=== PATIENT | female | born 1950 | race Caucasian/White ===

== ENCOUNTER 2017-04-24 17:46 | Emergency (ER) | payer BC ==
[2017-04-24 19:51] VITALS: BP 148/76
--- NOTE | 2017-05-17 16:09 | UC ---
Ab Stone Nikita, scribed for Sindi Sanchez DO on 04/24/17 at 1843 . General HPI - HPI Summary HPI Summary: This patient is a 67 year old F presenting to [facility] with a chief complaint of vomiting since 0200 this morning. The patient rates the pain 4/10 in severity. Symptoms aggravated by PO. Symptoms alleviated by nothing. Patient reports abdominal pain before vomiting, TIMMONS, dizziness, nausea, dehydration, and feeling feverish. Patient denies SOB, CP, pain in neck, jaw, or arm, diarrhea, dysuria, urinary changes in frequency, color, or odor, muscle aches, joint pain, and urticaria. Pt reports she can only eat crushed ice. Pt is a diabetic; BS was 475 at 1730. In [facility], her BS was 390. - History of Current Complaint Chief Complaint: UCGI Stated Complaint: VOMITING Time Seen by Provider: 04/24/17 18:39 Hx Obtained From: Patient Onset/Duration: Sudden Onset, Lasting Hours - 0200, Still Present Timing: Constant Onset Severity: Moderate Current Severity: Moderate Pain Intensity: 4 Pain Location at: abdominal pain prior to vomiting Aggravating: PO Alleviating: Nothing Associated Signs & Symptoms: Positive: Other - Patient reports abdominal pain before vomiting, TIMMONS, dizziness, nausea, dehydration, and feeling feverish. Patient denies SOB, CP, pain in neck, jaw, or arm, diarrhea, dysuria, urinary changes in frequency, color, or odor, muscle aches, joint pain, and urticaria. - Allergy/Home Medications Allergies/Adverse Reactions: Allergies Allergy/AdvReac Type Severity Reaction Status Date / Time No Known Allergies Allergy Verified 04/24/17 18:33 Home Medications: Home Medications Zoledronic/Mannitol 5 MG/100ML [Reclast 5 MG/100ML] 1 tab PO DAILY 04/24/17 [ History Confirmed 04/27/17] PMH/Surg Hx/FS Hx/Imm Hx Endocrine History: Diabetes Other Cardiovascular History: No CAD Cancer History: Breast Cancer - Surgical History Surgical History: Yes Surgery Procedure, Year, and Place: Removed fallopian tubes due to infection age 26, [facility]. Left breast lumpectomy. Depression - Family History Known Family History: Positive: Hypertension, Diabetes Family History: [place] - Social History Alcohol Use: Occasionally Alcohol Amount: 3-4 PER DAY Substance Use Type: None Smoking Status (MU): Former Smoker Type: Cigarettes Amount Used/How Often: 1/2 PACK A DAY Have You Smoked in the Last Year: No When Did the Patient Quit Smoking/Using Tobacco: 2007 - Immunization History Most Recent Influenza Vaccination: 04/2015 Most Recent Tetanus Shot: UNKNOWN Most Recent Pneumonia Vaccination: "APPROX 7 YRS AGO" Review of Systems Constitutional: Fever - feeling feverish Skin: Other - denies urticaria ENT: Other - dehydration Respiratory: Other - Denies SOB Cardiovascular: Other - Denies CP Gastrointestinal: Abdominal Pain - before vomiting, Nausea, Other - Denies diarrhea Genitourinary: Other - denies dysuria, urinary changes in frequency, color, or odor Musculoskeletal: Other: - denies pain in neck, jaw, or arm, muscle aches, joint pain Neurological: Headache, Other - Dizziness All Other Systems Reviewed And Are Negative: Yes Physical Exam Triage Information Reviewed: Yes Appearance: No Pain Distress, Well-Nourished, Ill-Appearing - Moderately Vital Signs: Initial Vital Signs Temp 100.5 F 04/24/17 18:26 Pulse 117 04/24/17 18:26 Resp 18 04/24/17 18:26 BP 120/59 04/24/17 18:26 Pulse Ox 98 04/24/17 18:26 Vital Signs Reviewed: Yes Eyes: Positive: Conjunctiva Clear. Negative: Discharge ENT: Positive: Hearing grossly normal, Other: - Normal voice. Negative: Muffled /hoarse voice Neck exam: Normal Neck: Positive: Supple Respiratory: Positive: Lungs clear, Normal breath sounds, No respiratory distress, No accessory muscle use, Other: - no crackles Cardiovascular: Positive: Tachycardia, Other: - possible JVD, holosystolic murmur Abdomen Description: Positive: Nontender, Soft. Negative: Distended, Guarding Bowel Sounds: Positive: Present, Hyperactive Musculoskeletal Exam: Normal Neurological: Positive: Alert, Muscle Tone Normal Psychological Exam: Normal Psychological: Positive: Age Appropriate Behavior Skin Exam: Normal, Other - Warm, Dry, Normal color Diagnostics - EKG Cardiac Rate: Tachycardia - taken at 1932; 117 bpm; Q waves in V1-V3 Cardiac Rhythm: Sinus: Normal Course/Dx - Course Course Of Treatment: This patient is a 67 year old F presenting to [facility] with a chief complaint of vomiting since 0200 this morning. The patient rates the pain 4/10 in severity. Symptoms aggravated by PO. Symptoms alleviated by nothing. Patient reports abdominal pain before vomiting, TIMMONS, dizziness, nausea, dehydration, and feeling feverish. Patient denies SOB, CP, pain in neck, jaw, or arm, diarrhea, dysuria, urinary changes in frequency, color, or odor, muscle aches, joint pain, and urticaria. Pt reports she can only eat crushed ice. Pt is a diabetic; BS was 475 at 1730. In [facility], her BS was 390. EKG reveals sinus tachycardia and Q waves at V1-V3. Medications reviewed this visit. Pt will be transferred to [facility] by ambulance. Pt is agreeable with this plan. - Differential Dx - Multi-Symptom Provider Diagnoses: acute n/v, dehydration, atypical cp Discharge - Discharge Plan Condition: Stable Disposition: TRANS HIGHER LVL OF CARE FAC Referrals: Fran Meléndez MD [Primary Care Provider] - The documentation as recorded by the Ab martin Nikita accurately reflects the service I personally performed and the decisions made by , Sindi Sanchez DO.
== END 2017-04-24 19:53 | disposition short-term general hospital (02) ==
LOC: UCEAST 17:46
DX: R11.2 Nausea with vomiting, unspecified (principal); E86.0 Dehydration; R07.89 Other chest pain; E11.9 Type 2 diabetes mellitus without complications; Z85.3 Personal history of malignant neoplasm of breast; F32.9 Major depressive disorder, single episode, unspecified; Z87.891 Personal history of nicotine dependence
CPT/HCPCS: 81003; 93005; 99213; G0463

== ENCOUNTER 2017-04-24 20:04 | Inpatient (IN) | payer BC ==
[2017-04-24] MEDS ORDERED: Ondansetron INJ* 2 MG/ML VIAL IV ONE (21:06)
[2017-04-24] MEDS: NS 0.9% 1000 ML* 2,000 ML IV ONE ×2 (21:18→21:56)
[2017-04-24 21:29] LABS: Hematocrit 42 % (35-47); Hemoglobin 14.1 g/dl (12.0-16.0); Mean Corpuscular HGB Conc 34 g/dl (31-36); Mean Corpuscular Hemoglobin 33 pg (27-31); Mean Corpuscular Volume 99 fL (80-97); Mean Platelet Volume 9 um3 (7.4-10.4); Red Blood Count 4.26 10^6/ul (4.0-5.4); Red Cell Distribution Width 12 % (10.5-15); White Blood Count 11.2 10^3/ul (3.5-10.8)
--- NOTE | 2017-04-24 21:39 | RAD ---
INDICATION: Tachycardia. COMPARISON: Comparison is made with a prior study from April 09, 2016. TECHNIQUE: A portable view of the chest was obtained. FINDINGS: Cardiac and mediastinal contours appear to be within normal limits. There is a 1.2 cm nodular density which projects above the right lung base possibly representing a nipple shadow. Recommend repeat chest film with nipple markers. There are curvilinear densities which project above the left lung base. This was in the region of a prior pneumonia and may represent areas of scarring. The lungs are otherwise clear. No pleural effusion is seen. IMPRESSION: 1. NO EVIDENCE FOR ACUTE FINDING. 2. THERE IS A NODULAR DENSITY WHICH PROJECTS ABOVE THE RIGHT LUNG BASE. RECOMMEND REPEAT CHEST X-RAY WITH NIPPLE MARKERS.
[2017-04-24 21:44] LABS: ALT 22 U/L (7-52); AST 24 U/L (13-39); Albumin 4.4 g/dL (3.2-5.2); Alkaline Phosphatase 72 U/L (34-104); BUN/Creatinine Ratio 19.6 (8-20); Blood Urea Nitrogen 20 mg/dL (6-24); C Reactive Protein < 1.00 mg/L (< 5.00); Calcium 9.5 mg/dL (8.6-10.3); Chloride 95 mmol/L (101-111); EGFR African American 69.7 (>60); EGFR Non-African American 54.2 (>60); Globulin 2.9 g/dL (2-4); Glucose 308 mg/dL (70-100); Lipase 12 U/L (11.0-82.0); Potassium 4.1 mmol/L (3.5-5.0); Sodium 134 mmol/L (133-145); Total Protein 7.3 g/dL (6.4-8.9)
[2017-04-24 21:48] LABS: Anion Gap 26 mmol/L (2-11); CO2 Carbon Dioxide 13 mmol/L (22-32)
[2017-04-24 22:08] LABS: Urine Bilirubin Negative (Negative); Urine Glucose 3+(>=500 mg/dL) (Negative); Urine Nitrite Negative (Negative)
[2017-04-24 22:14] LABS: Venous Bicarbonate HCO3 12.1 mmol/L (24-28)
[2017-04-24] MEDS ORDERED: Acetaminophen TAB* 325 MG PO PRN (22:16)
[2017-04-24] MEDS ORDERED: Albuterol 2.5 MG/3 ML NEB.SOL* (0.083%) INH PRN (22:17)
[2017-04-24] MEDS ORDERED: Ondansetron INJ* 2 MG/ML VIAL IV PRN (22:17)
[2017-04-24] MEDS ORDERED: CMCS:Melatonin (NF) 3 MG TAB PO PRN (22:17)
[2017-04-24] MEDS ORDERED: D5W 1/2 NS 1000 ML BAG* 1,000 ML IV SCH (23:00)
[2017-04-25 00:58] LABS: Venous Bicarbonate HCO3 7.1 mmol/L (24-28)
[2017-04-25] MEDS ORDERED: NS 0.9% 1000 ML* 1,000 ML IV SCH (01:15)
[2017-04-25 01:18] LABS: BUN/Creatinine Ratio 19.3 (8-20); Calcium 8.3 mg/dL (8.6-10.3); EGFR African American 58.4 (>60); EGFR Non-African American 45.4 (>60); Potassium 4.7 mmol/L (3.5-5.0)
[2017-04-25] MEDS ORDERED: D5NS 0.9% 1000 ML BAG* 1,000 ML IV SCH (03:00)
--- NOTE | 2017-04-25 04:23 | ED ---
Hugo Stone Thomas, scribed for John Silva MD on 04/24/17 at 2110 . HPI Diabetic - HPI Summary HPI Summary: The pt is a 67 y/o F with a Hx of Type 1 DM referred from [facility] with complains of vomiting that began this AM at 03:00. She has been vomiting all day and the only time she does not vomit is when she does not eat. The pain is aggravated by PO intake. The pain is alleviated by nothing. 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 Her blood glucose has been in the 300s today. She has a Hx of DKA and she says her current symptoms feel like her last bout of DKA. Pt additionally c/o nausea. Pt denies confusion, abdominal pain. She is hard of hearing. - History Of Current Complaint Chief Complaint: EDDiabeticProb Time Seen by Provider: 04/24/17 20:57 Hx Obtained From: Patient Onset/Duration: Lasting Hours - vomiting onset today at 03:00, Still Present Timing: Constant Aggravating: Other - vomiting aggravated by PO intake Alleviating: Nothing Associated Signs & Symptoms: Nausea, Vomiting Related History: DM I, Hx of DKA - Allergies/Home Medications Allergies/Adverse Reactions: Allergies Allergy/AdvReac Type Severity Reaction Status Date / Time No Known Allergies Allergy Verified 04/24/17 18:33 PMH/Surg Hx/FS Hx/Imm Hx Previously Healthy: No Endocrine/Hematology History: Reports: Hx Diabetes - 7 yrs, Other Endocrine/ Hematological Disorders - Hx DKA Denies: Hx Thyroid Disease, Hx Anemia Cardiovascular History: Reports: Hx Hypertension Denies: Hx Congestive Heart Failure, Other Cardiovascular Problems/Disorders Respiratory History: Reports: Hx Chronic Bronchitis, Other Respiratory Problems/ Disorders - PNEUMONIA Denies: Hx Asthma, Hx Chronic Obstructive Pulmonary Disease (COPD) GI History: Denies: Hx Jaundice, Hx Ulcer, Other GI Disorders Musculoskeletal History: Reports: Hx Arthritis - HANDS, Hx Rheumatoid Arthritis Denies: Other Musculoskeletal History Sensory History: Reports: Hx Contacts or Glasses, Hx Glaucoma - EARLY STAGES, Hx Hearing Aid - [facility] Opthamlomology History: Reports: Hx Contacts or Glasses, Hx Glaucoma - EARLY STAGES Psychiatric History: Reports: Hx Anxiety - ON MEDS, Hx Depression - ON MEDS - Cancer History Cancer Type, Location and Year: Breast cancer 2 years ago Hx Chemotherapy: No Hx Radiation Therapy: Yes - BREAST 2016 - Surgical History Surgery Procedure, Year, and Place: Removed fallopian tubes due to infection age 26, [facility]. Left breast lumpectomy. Depression Hx Anesthesia Reactions: No Infectious Disease History: Yes Infectious Disease History: Reports: Hx Hepatitis - HEP C, TREATED, POSSIBLE HX HEP A AND B Denies: Hx Clostridium Difficile, Hx Human Immunodeficiency Virus (HIV), Hx of Known/Suspected MRSA, Hx Shingles, Hx Tuberculosis, Hx Known/Suspected VRE, Hx Known/Suspected VRSA, History Other Infectious Disease, Traveled Outside the [place] in Last 30 Days - Family History Known Family History: Positive: Diabetes - (type II but not type I) - Social History Alcohol Use: Occasionally Alcohol Amount: 3-4 PER DAY Substance Use Type: Reports: None Hx Tobacco Use: No Smoking Status (MU): Former Smoker Type: Cigarettes Amount Used/How Often: 1/2 PACK A DAY Have You Smoked in the Last Year: No Review of Systems Positive: Other - Blood glucose in the 300s Positive: Vomiting - onset today at 03:00 and aggravated by PO intake, Nausea. Negative: Abdominal Pain Neurological: Other - NEGATIVE: confusion All Other Systems Reviewed And Are Negative: Yes Physical Exam Triage Information Reviewed: Yes Vital Signs On Initial Exam: Initial Vitals Pulse Pulse Ox 111 97 04/24/17 20:12 04/24/17 20:12 Vital Signs Reviewed: Yes Appearance: Positive: No Pain Distress, Ill-Appearing - mildly to moderately Skin: Positive: Warm, Skin Color Reflects Adequate Perfusion, Dry Head/Face: Positive: Normal Head/Face Inspection Eyes: Positive: EOMI, LUNA ENT: Positive: Other - Dry oral mucosa. Otherwise normal ENT inspection. She is hard of hearing Neck: Positive: Supple, Nontender Respiratory/Lung Sounds: Positive: Clear to Auscultation, Breath Sounds Present Cardiovascular: Positive: Murmur, Tachycardia, Other - Regular rhythm Abdomen Description: Positive: Nontender, Soft Bowel Sounds: Positive: Hypoactive Musculoskeletal: Positive: Normal, Strength/ROM Intact Neurological: Positive: Normal, Sensory/Motor Intact, Alert, Oriented to Person Place, Time, Other - No neurological deficits Psychiatric: Positive: Affect/Mood Appropriate - Anuel Coma Scale Coma Scale Total: 15 Diagnostics - Vital Signs Vital Signs Temp Pulse Resp BP Pulse Ox 04/24/17 20:30 107 21 115/57 97 04/24/17 20:20 99.8 F 115 16 115/57 97 04/24/17 20:13 113 118/71 98 04/24/17 20:12 111 97 - Laboratory Lab Results: Lab Results 04/24/17 04/24/17 04/24/17 Range/Units 19:25 19:25 19:25 WBC (3.5-10.8) 10^3/ul RBC (4.0-5.4) 10^6/ul Hgb (12.0-16.0) g/dl Hct (35-47) % MCV (80-97) fL MCH (27-31) pg MCHC (31-36) g/dl RDW (10.5-15) % Plt Count (150-450) 10^3/ul MPV (7.4-10.4) um3 Neut % (Auto) (38-83) % Lymph % (Auto) (25-47) % [place] % (Auto) (1-9) % Eos % (Auto) (0-6) % Baso % (Auto) (0-2) % Absolute Neuts (auto) (1.5-7.7) 10^3/ul Absolute Lymphs (auto) (1.0-4.8) 10^3/ul Absolute Monos (auto) (0-0.8) 10^3/ul Absolute Eos (auto) (0-0.6) 10^3/ul Absolute Basos (auto) (0-0.2) 10^3/ul Absolute Nucleated RBC 10^3/ul Nucleated RBC % INR (Anticoag Therapy) 0.81 L (0.89-1.11) APTT 31.2 (26.0-36.3) seconds VBG pH (7.33-7.43) VBG pCO2 (41-51) mmHg VBG pO2 (35-45) mmHg VBG HCO3 (24-28) mmol/L VBG O2 Saturation (70-80) % VBG Base Excess (0-4) Sodium 134 (133-145) mmol/L Potassium 4.1 (3.5-5.0) mmol/L Chloride 95 L (101-111) mmol/L Carbon Dioxide 13 L* (22-32) mmol/L Anion Gap 26 H (2-11) mmol/L BUN 20 (6-24) mg/dL Creatinine 1.02 H (0.51-0.95) mg/dL Est GFR ( Amer) 69.7 (>60) Est GFR (Non-Af Amer) 54.2 (>60) BUN/Creatinine Ratio 19.6 (8-20) Glucose 308 H (70-100) mg/dL Lactic Acid (0.5-2.0) mmol/L Calcium 9.5 (8.6-10.3) mg/dL Total Bilirubin 0.80 (0.2-1.0) mg/dL AST 24 (13-39) U/L ALT 22 (7-52) U/L Alkaline Phosphatase 72 (34-104) U/L C-Reactive Protein < 1.00 (< 5.00) mg/L B-Natriuretic Peptide 334 H ( - 100) pg/mL Total Protein 7.3 (6.4-8.9) g/dL Albumin 4.4 (3.2-5.2) g/dL Globulin 2.9 (2-4) g/dL Albumin/Globulin Ratio 1.5 (1-3) Lipase 12 (11.0-82.0) U/L Urine Color Urine Appearance Urine pH (5-9) Ur Specific [place] (1.010-1.030) Urine Protein (Negative) Urine Ketones (Negative) Urine Blood (Negative) Urine Nitrate (Negative) Urine Bilirubin (Negative) Urine Urobilinogen (Negative) Ur Leukocyte Esterase (Negative) Urine Glucose (Negative) 04/24/17 04/24/17 04/24/17 Range/Units 19:25 21:51 22:05 WBC 11.2 H (3.5-10.8) 10^3/ul RBC 4.26 (4.0-5.4) 10^6/ul Hgb 14.1 (12.0-16.0) g/dl Hct 42 (35-47) % MCV 99 H (80-97) fL MCH 33 H (27-31) pg MCHC 34 (31-36) g/dl RDW 12 (10.5-15) % Plt Count 212 (150-450) 10^3/ul MPV 9 (7.4-10.4) um3 Neut % (Auto) 87.4 H (38-83) % Lymph % (Auto) 5.4 L (25-47) % [place] % (Auto) 6.8 (1-9) % Eos % (Auto) 0.1 (0-6) % Baso % (Auto) 0.3 (0-2) % Absolute Neuts (auto) 9.8 H (1.5-7.7) 10^3/ul Absolute Lymphs (auto) 0.6 L (1.0-4.8) 10^3/ul Absolute Monos (auto) 0.8 (0-0.8) 10^3/ul Absolute Eos (auto) 0 (0-0.6) 10^3/ul Absolute Basos (auto) 0 (0-0.2) 10^3/ul Absolute Nucleated RBC 0.01 10^3/ul Nucleated RBC % 0 INR (Anticoag Therapy) (0.89-1.11) APTT (26.0-36.3) seconds VBG pH (7.33-7.43) VBG pCO2 (41-51) mmHg VBG pO2 (35-45) mmHg VBG HCO3 (24-28) mmol/L VBG O2 Saturation (70-80) % VBG Base Excess (0-4) Sodium (133-145) mmol/L Potassium (3.5-5.0) mmol/L Chloride (101-111) mmol/L Carbon Dioxide (22-32) mmol/L Anion Gap (2-11) mmol/L BUN (6-24) mg/dL Creatinine (0.51-0.95) mg/dL Est GFR ( Amer) (>60) Est GFR (Non-Af Amer) (>60) BUN/Creatinine Ratio (8-20) Glucose (70-100) mg/dL Lactic Acid 2.6 H* (0.5-2.0) mmol/L Calcium (8.6-10.3) mg/dL Total Bilirubin (0.2-1.0) mg/dL AST (13-39) U/L ALT (7-52) U/L Alkaline Phosphatase (34-104) U/L C-Reactive Protein (< 5.00) mg/L B-Natriuretic Peptide ( - 100) pg/mL Total Protein (6.4-8.9) g/dL Albumin (3.2-5.2) g/dL Globulin (2-4) g/dL Albumin/Globulin Ratio (1-3) Lipase (11.0-82.0) U/L Urine Color Yellow Urine Appearance Clear Urine pH 5.0 (5-9) Ur Specific [place] 1.015 (1.010-1.030) Urine Protein Negative (Negative) Urine Ketones 2+ H (Negative) Urine Blood Negative (Negative) Urine Nitrate Negative (Negative) Urine Bilirubin Negative (Negative) Urine Urobilinogen Negative (Negative) Ur Leukocyte Esterase Negative (Negative) Urine Glucose 3+(>=500 mg/dl) H (Negative) 04/24/17 Range/Units 22:05 WBC (3.5-10.8) 10^3/ul RBC (4.0-5.4) 10^6/ul Hgb (12.0-16.0) g/dl Hct (35-47) % MCV (80-97) fL MCH (27-31) pg MCHC (31-36) g/dl RDW (10.5-15) % Plt Count (150-450) 10^3/ul MPV (7.4-10.4) um3 Neut % (Auto) (38-83) % Lymph % (Auto) (25-47) % [place] % (Auto) (1-9) % Eos % (Auto) (0-6) % Baso % (Auto) (0-2) % Absolute Neuts (auto) (1.5-7.7) 10^3/ul Absolute Lymphs (auto) (1.0-4.8) 10^3/ul Absolute Monos (auto) (0-0.8) 10^3/ul Absolute Eos (auto) (0-0.6) 10^3/ul Absolute Basos (auto) (0-0.2) 10^3/ul Absolute Nucleated RBC 10^3/ul Nucleated RBC % INR (Anticoag Therapy) (0.89-1.11) APTT (26.0-36.3) seconds VBG pH 7.19 L (7.33-7.43) VBG pCO2 31 L (41-51) mmHg VBG pO2 31 L (35-45) mmHg VBG HCO3 12.1 L (24-28) mmol/L VBG O2 Saturation 62.6 L (70-80) % VBG Base Excess -15.1 L (0-4) Sodium (133-145) mmol/L Potassium (3.5-5.0) mmol/L Chloride (101-111) mmol/L Carbon Dioxide (22-32) mmol/L Anion Gap (2-11) mmol/L BUN (6-24) mg/dL Creatinine (0.51-0.95) mg/dL Est GFR ( Amer) (>60) Est GFR (Non-Af Amer) (>60) BUN/Creatinine Ratio (8-20) Glucose (70-100) mg/dL Lactic Acid (0.5-2.0) mmol/L Calcium (8.6-10.3) mg/dL Total Bilirubin (0.2-1.0) mg/dL AST (13-39) U/L ALT (7-52) U/L Alkaline Phosphatase (34-104) U/L C-Reactive Protein (< 5.00) mg/L B-Natriuretic Peptide ( - 100) pg/mL Total Protein (6.4-8.9) g/dL Albumin (3.2-5.2) g/dL Globulin (2-4) g/dL Albumin/Globulin Ratio (1-3) Lipase (11.0-82.0) U/L Urine Color Urine Appearance Urine pH (5-9) Ur Specific [place] (1.010-1.030) Urine Protein (Negative) Urine Ketones (Negative) Urine Blood (Negative) Urine Nitrate (Negative) Urine Bilirubin (Negative) Urine Urobilinogen (Negative) Ur Leukocyte Esterase (Negative) Urine Glucose (Negative) Result Diagrams: 04/24/17 19:25 04/25/17 00:00 Lab Statement: Any lab studies that have been ordered have been reviewed, and results considered in the medical decision making process. - Radiology CXR Xray Interpretation: Positive (See Comments) - 1. NO EVIDENCE FOR ACUTE FINDING. 2. THERE IS A NODULAR DENSITY WHICH PROJECTS ABOVE THE RIGHT LUNG BASE. RECOMMEND REPEAT CHEST X-RAY WITH NIPPLE MARKERS. ED physician has reviewed this report and agrees. Radiology Interpretation Completed By: Radiologist - EKG 21:05 Cardiac Rate: Tachycardia - 104 BPM EKG Interpretation: Sinus tachycardia. Minimal ST depresssions in anterolateral. No ectopy. Diabetic Course/Dx - Course Course Of Treatment: Medications reviewed. 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 - Diagnoses Provider Diagnoses: DKA (diabetic ketoacidoses) - Physician Notifications Discussed Care Of Patient With: Ismael Orta Time Discussed With Above Provider: 22:06 Instructed by Provider To: Other - I consulted with Dr. Orta, actuarial technician , who admits the patient to [facility]. - Critical Care Time Critical Care Time: 30-74 min Discharge - Discharge Plan Condition: Fair Disposition: ADMITTED TO [facility] documentation as recorded by the Hugo martin Thomas accurately reflects the service I personally performed and the decisions made by me, John Silva MD.
[2017-04-25 04:29] LABS: Venous Bicarbonate HCO3 17.4 mmol/L (24-28)
[2017-04-25 04:53] LABS: BUN/Creatinine Ratio 19.8 (8-20); Calcium 8.1 mg/dL (8.6-10.3); EGFR African American 66.7 (>60); EGFR Non-African American 51.9 (>60); Potassium 4.4 mmol/L (3.5-5.0)
--- NOTE | 2017-04-25 04:55 | HP ---
H&P (Free Text) History and Physical: PCP: Dada Meléndez MD Date/Time: 04/24/2017 2200 CC: N/V HPI: Mrs Mchugh is a 67YO female HX DM1 since age 56 who presents reporting N/V onset 0300 continuing until 17304/24 for which she presented to urgent care and was [place] via [place] [facility] She relates feeling fine going to bed . She has had subjective fevers, but no chills, sweats, diarrhea, pain, black or bloody content in emesis, sore throat, earache, cough, congestion, B/U/F of urine, SOB, palpitations, rash, or open wounds. She reports compliance with prescribed medications. PMedHx DM1 w/ retinopathy breast CA, left hepatitis C depression Ambulatory Orders Lisinopril TAB* [Prinivil TAB 10 MG*] 20 mg PO QPM 08/31/12 PARoxetine HCL TAB* [Paxil TAB*] 20 mg PO QPM 08/31/12 Multiple Vitamins 1 tab PO DAILY 07/25/15 Vitamin D 1,000 mg PO DAILY 07/25/15 Anastrozole 1 mg PO DAILY 02/05/16 Insulin GLARGINE(*) [Lantus(*)] 20 units SUBCUT BEDTIME 04/08/16 Insulin LISPRO* [HumaLOG*] 0 unit SUBCUT AC 04/08/16 Zoledronic/Mannitol 5 MG/100ML [Reclast 5 MG/100ML] 04/24/17 Allergies No Known Allergies Allergy (Verified 04/24/17 18:33) PSurgHx R oophorectomy tonsillectomy SocHx: denies tobacco, occasional alcohol, denies recreational drugs; lives with her ; full code status FamHx: Mother: thoracic aneurysm, colon CA; Father: DM2, prostate CA; Brother: healthy ROS: as above, otherwise reviewed and all were negative vitals: Vital Signs Temp 36.9 C 04/25/17 04:00 Pulse 94 04/25/17 04:45 Resp 16 04/25/17 04:45 BP 104/56 04/25/17 04:45 Pulse Ox 98 04/25/17 04:45 Intake & Output 04/24/17 04/24/17 04/25/17 11:59 23:59 11:59 Intake Total 1999 Balance 2000 Weight 52.1 kg 52.1 kg Intake: IV Fluids 1999 Constitutional: NAD, normally developed, well-nourished white female HEENM: atraumatic; sclera/conjunctiva: non-icteric/clear; hearing: clinically intact; oropharynx: clear, mucosa tacky Neck: soft tissue: non-tender; thyroid: normal Pulmonary: clear to auscultation bilaterally, good aeration, no accessory muscle use CV: RR/RR, normal S1S2, no carotid bruit, no jugular venous distention, 2+ B DP/ PT, no edema Abdominal: soft, non-distended, non-tender, no rebound/guarding/rigidity, normoactive bowel sounds, no hepatosplenomegaly or masses, no costovertebral angle tenderness Musculoskeletal: general: grossly intact, no palpable tenderness Integumental: diffuse mild/mod chronic sun damage Psychiatric orientation: AA&O to PPS affect: calm mood: cooperative eye contact: good content: reliable responses: timely insight: fair Testing: Lab Results 04/24/17 04/24/17 04/24/17 Range/Units 19:25 19:25 19:25 WBC (3.5-10.8) 10^3/ul RBC (4.0-5.4) 10^6/ul Hgb (12.0-16.0) g/dl Hct (35-47) % MCV (80-97) fL MCH (27-31) pg MCHC (31-36) g/dl RDW (10.5-15) % Plt Count (150-450) 10^3/ul MPV (7.4-10.4) um3 Neut % (Auto) (38-83) % Lymph % (Auto) (25-47) % Boyd % (Auto) (1-9) % Eos % (Auto) (0-6) % Baso % (Auto) (0-2) % Absolute Neuts (auto) (1.5-7.7) 10^3/ul Absolute Lymphs (auto) (1.0-4.8) 10^3/ul Absolute Monos (auto) (0-0.8) 10^3/ul Absolute Eos (auto) (0-0.6) 10^3/ul Absolute Basos (auto) (0-0.2) 10^3/ul Absolute Nucleated RBC 10^3/ul Nucleated RBC % INR (Anticoag Therapy) 0.81 L (0.89-1.11) APTT 31.2 (26.0-36.3) seconds VBG pH (7.33-7.43) VBG pCO2 (41-51) mmHg VBG pO2 (35-45) mmHg VBG HCO3 (24-28) mmol/L VBG O2 Saturation (70-80) % VBG Base Excess (0-4) Sodium 134 (133-145) mmol/L Potassium 4.1 (3.5-5.0) mmol/L Chloride 95 L (101-111) mmol/L Carbon Dioxide 13 L* (22-32) mmol/L Anion Gap 26 H (2-11) mmol/L BUN 20 (6-24) mg/dL Creatinine 1.02 H (0.51-0.95) mg/dL Est GFR ( Amer) 69.7 (>60) Est GFR (Non-Af Amer) 54.2 (>60) BUN/Creatinine Ratio 19.6 (8-20) Glucose 308 H (70-100) mg/dL POC Glucose (mg/dL) (70-100) mg/dL Lactic Acid (0.5-2.0) mmol/L Calcium 9.5 (8.6-10.3) mg/dL Total Bilirubin 0.80 (0.2-1.0) mg/dL AST 24 (13-39) U/L ALT 22 (7-52) U/L Alkaline Phosphatase 72 (34-104) U/L C-Reactive Protein < 1.00 (< 5.00) mg/L B-Natriuretic Peptide 334 H ( - 100) pg/mL Total Protein 7.3 (6.4-8.9) g/dL Albumin 4.4 (3.2-5.2) g/dL Globulin 2.9 (2-4) g/dL Albumin/Globulin Ratio 1.5 (1-3) Lipase 12 (11.0-82.0) U/L Urine Color Urine Appearance Urine pH (5-9) Ur Specific [place] (1.010-1.030) Urine Protein (Negative) Urine Ketones (Negative) Urine Blood (Negative) Urine Nitrate (Negative) Urine Bilirubin (Negative) Urine Urobilinogen (Negative) Ur Leukocyte Esterase (Negative) Urine Glucose (Negative) 04/24/17 04/24/17 04/24/17 Range/Units 19:25 21:51 22:05 WBC 11.2 H (3.5-10.8) 10^3/ul RBC 4.26 (4.0-5.4) 10^6/ul Hgb 14.1 (12.0-16.0) g/dl Hct 42 (35-47) % MCV 99 H (80-97) fL MCH 33 H (27-31) pg MCHC 34 (31-36) g/dl RDW 12 (10.5-15) % Plt Count 212 (150-450) 10^3/ul MPV 9 (7.4-10.4) um3 Neut % (Auto) 87.4 H (38-83) % Lymph % (Auto) 5.4 L (25-47) % Boyd % (Auto) 6.8 (1-9) % Eos % (Auto) 0.1 (0-6) % Baso % (Auto) 0.3 (0-2) % Absolute Neuts (auto) 9.8 H (1.5-7.7) 10^3/ul Absolute Lymphs (auto) 0.6 L (1.0-4.8) 10^3/ul Absolute Monos (auto) 0.8 (0-0.8) 10^3/ul Absolute Eos (auto) 0 (0-0.6) 10^3/ul Absolute Basos (auto) 0 (0-0.2) 10^3/ul Absolute Nucleated RBC 0.01 10^3/ul Nucleated RBC % 0 INR (Anticoag Therapy) (0.89-1.11) APTT (26.0-36.3) seconds VBG pH (7.33-7.43) VBG pCO2 (41-51) mmHg VBG pO2 (35-45) mmHg VBG HCO3 (24-28) mmol/L VBG O2 Saturation (70-80) % VBG Base Excess (0-4) Sodium (133-145) mmol/L Potassium (3.5-5.0) mmol/L Chloride (101-111) mmol/L Carbon Dioxide (22-32) mmol/L Anion Gap (2-11) mmol/L BUN (6-24) mg/dL Creatinine (0.51-0.95) mg/dL Est GFR ( Amer) (>60) Est GFR (Non-Af Amer) (>60) BUN/Creatinine Ratio (8-20) Glucose (70-100) mg/dL POC Glucose (mg/dL) (70-100) mg/dL Lactic Acid 2.6 H* (0.5-2.0) mmol/L Calcium (8.6-10.3) mg/dL Total Bilirubin (0.2-1.0) mg/dL AST (13-39) U/L ALT (7-52) U/L Alkaline Phosphatase (34-104) U/L C-Reactive Protein (< 5.00) mg/L B-Natriuretic Peptide ( - 100) pg/mL Total Protein (6.4-8.9) g/dL Albumin (3.2-5.2) g/dL Globulin (2-4) g/dL Albumin/Globulin Ratio (1-3) Lipase (11.0-82.0) U/L Urine Color Yellow Urine Appearance Clear Urine pH 5.0 (5-9) Ur Specific [place] 1.015 (1.010-1.030) Urine Protein Negative (Negative) Urine Ketones 2+ H (Negative) Urine Blood Negative (Negative) Urine Nitrate Negative (Negative) Urine Bilirubin Negative (Negative) Urine Urobilinogen Negative (Negative) Ur Leukocyte Esterase Negative (Negative) Urine Glucose 3+(>=500 mg/dl) H (Negative) 04/24/17 04/24/17 04/24/17 Range/Units 22:05 22:25 23:20 WBC (3.5-10.8) 10^3/ul RBC (4.0-5.4) 10^6/ul Hgb (12.0-16.0) g/dl Hct (35-47) % MCV (80-97) fL MCH (27-31) pg MCHC (31-36) g/dl RDW (10.5-15) % Plt Count (150-450) 10^3/ul MPV (7.4-10.4) um3 Neut % (Auto) (38-83) % Lymph % (Auto) (25-47) % Boyd % (Auto) (1-9) % Eos % (Auto) (0-6) % Baso % (Auto) (0-2) % Absolute Neuts (auto) (1.5-7.7) 10^3/ul Absolute Lymphs (auto) (1.0-4.8) 10^3/ul Absolute Monos (auto) (0-0.8) 10^3/ul Absolute Eos (auto) (0-0.6) 10^3/ul Absolute Basos (auto) (0-0.2) 10^3/ul Absolute Nucleated RBC 10^3/ul Nucleated RBC % INR (Anticoag Therapy) (0.89-1.11) APTT (26.0-36.3) seconds VBG pH 7.19 L (7.33-7.43) VBG pCO2 31 L (41-51) mmHg VBG pO2 31 L (35-45) mmHg VBG HCO3 12.1 L (24-28) mmol/L VBG O2 Saturation 62.6 L (70-80) % VBG Base Excess -15.1 L (0-4) Sodium (133-145) mmol/L Potassium (3.5-5.0) mmol/L Chloride (101-111) mmol/L Carbon Dioxide (22-32) mmol/L Anion Gap (2-11) mmol/L BUN (6-24) mg/dL Creatinine (0.51-0.95) mg/dL Est GFR ( Amer) (>60) Est GFR (Non-Af Amer) (>60) BUN/Creatinine Ratio (8-20) Glucose 487 H (70-100) mg/dL POC Glucose (mg/dL) > 444 H* (70-100) mg/dL Lactic Acid (0.5-2.0) mmol/L Calcium (8.6-10.3) mg/dL Total Bilirubin (0.2-1.0) mg/dL AST (13-39) U/L ALT (7-52) U/L Alkaline Phosphatase (34-104) U/L C-Reactive Protein (< 5.00) mg/L B-Natriuretic Peptide ( - 100) pg/mL Total Protein (6.4-8.9) g/dL Albumin (3.2-5.2) g/dL Globulin (2-4) g/dL Albumin/Globulin Ratio (1-3) Lipase (11.0-82.0) U/L Urine Color Urine Appearance Urine pH (5-9) Ur Specific [place] (1.010-1.030) Urine Protein (Negative) Urine Ketones (Negative) Urine Blood (Negative) Urine Nitrate (Negative) Urine Bilirubin (Negative) Urine Urobilinogen (Negative) Ur Leukocyte Esterase (Negative) Urine Glucose (Negative) 04/24/17 04/25/17 04/25/17 Range/Units 23:58 00:00 00:00 WBC (3.5-10.8) 10^3/ul RBC (4.0-5.4) 10^6/ul Hgb (12.0-16.0) g/dl Hct (35-47) % MCV (80-97) fL MCH (27-31) pg MCHC (31-36) g/dl RDW (10.5-15) % Plt Count (150-450) 10^3/ul MPV (7.4-10.4) um3 Neut % (Auto) (38-83) % Lymph % (Auto) (25-47) % Boyd % (Auto) (1-9) % Eos % (Auto) (0-6) % Baso % (Auto) (0-2) % Absolute Neuts (auto) (1.5-7.7) 10^3/ul Absolute Lymphs (auto) (1.0-4.8) 10^3/ul Absolute Monos (auto) (0-0.8) 10^3/ul Absolute Eos (auto) (0-0.6) 10^3/ul Absolute Basos (auto) (0-0.2) 10^3/ul Absolute Nucleated RBC 10^3/ul Nucleated RBC % INR (Anticoag Therapy) (0.89-1.11) APTT (26.0-36.3) seconds VBG pH Pending (7.33-7.43) VBG pCO2 28 L (41-51) mmHg VBG pO2 49 H (35-45) mmHg VBG HCO3 7.1 L (24-28) mmol/L VBG O2 Saturation 78.7 (70-80) % VBG Base Excess -22.2 L (0-4) Sodium 133 (133-145) mmol/L Potassium 4.7 (3.5-5.0) mmol/L Chloride 96 L (101-111) mmol/L Carbon Dioxide 8 L* (22-32) mmol/L Anion Gap 29 H (2-11) mmol/L BUN 23 (6-24) mg/dL Creatinine 1.19 H (0.51-0.95) mg/dL Est GFR ( Amer) 58.4 (>60) Est GFR (Non-Af Amer) 45.4 (>60) BUN/Creatinine Ratio 19.3 (8-20) Glucose 530 H* (70-100) mg/dL POC Glucose (mg/dL) > 444 H* (70-100) mg/dL Lactic Acid (0.5-2.0) mmol/L Calcium 8.3 L (8.6-10.3) mg/dL Total Bilirubin (0.2-1.0) mg/dL AST (13-39) U/L ALT (7-52) U/L Alkaline Phosphatase (34-104) U/L C-Reactive Protein (< 5.00) mg/L B-Natriuretic Peptide ( - 100) pg/mL Total Protein (6.4-8.9) g/dL Albumin (3.2-5.2) g/dL Globulin (2-4) g/dL Albumin/Globulin Ratio (1-3) Lipase (11.0-82.0) U/L Urine Color Urine Appearance Urine pH (5-9) Ur Specific [place] (1.010-1.030) Urine Protein (Negative) Urine Ketones (Negative) Urine Blood (Negative) Urine Nitrate (Negative) Urine Bilirubin (Negative) Urine Urobilinogen (Negative) Ur Leukocyte Esterase (Negative) Urine Glucose (Negative) 04/25/17 04/25/17 04/25/17 Range/Units 01:05 02:06 02:39 WBC (3.5-10.8) 10^3/ul RBC (4.0-5.4) 10^6/ul Hgb (12.0-16.0) g/dl Hct (35-47) % MCV (80-97) fL MCH (27-31) pg MCHC (31-36) g/dl RDW (10.5-15) % Plt Count (150-450) 10^3/ul MPV (7.4-10.4) um3 Neut % (Auto) (38-83) % Lymph % (Auto) (25-47) % Boyd % (Auto) (1-9) % Eos % (Auto) (0-6) % Baso % (Auto) (0-2) % Absolute Neuts (auto) (1.5-7.7) 10^3/ul Absolute Lymphs (auto) (1.0-4.8) 10^3/ul Absolute Monos (auto) (0-0.8) 10^3/ul Absolute Eos (auto) (0-0.6) 10^3/ul Absolute Basos (auto) (0-0.2) 10^3/ul Absolute Nucleated RBC 10^3/ul Nucleated RBC % INR (Anticoag Therapy) (0.89-1.11) APTT (26.0-36.3) seconds VBG pH (7.33-7.43) VBG pCO2 (41-51) mmHg VBG pO2 (35-45) mmHg VBG HCO3 (24-28) mmol/L VBG O2 Saturation (70-80) % VBG Base Excess (0-4) Sodium (133-145) mmol/L Potassium (3.5-5.0) mmol/L Chloride (101-111) mmol/L Carbon Dioxide (22-32) mmol/L Anion Gap (2-11) mmol/L BUN (6-24) mg/dL Creatinine (0.51-0.95) mg/dL Est GFR ( Amer) (>60) Est GFR (Non-Af Amer) (>60) BUN/Creatinine Ratio (8-20) Glucose (70-100) mg/dL POC Glucose (mg/dL) 413 H* 303 H (70-100) mg/dL Lactic Acid 2.0 (0.5-2.0) mmol/L Calcium (8.6-10.3) mg/dL Total Bilirubin (0.2-1.0) mg/dL AST (13-39) U/L ALT (7-52) U/L Alkaline Phosphatase (34-104) U/L C-Reactive Protein (< 5.00) mg/L B-Natriuretic Peptide ( - 100) pg/mL Total Protein (6.4-8.9) g/dL Albumin (3.2-5.2) g/dL Globulin (2-4) g/dL Albumin/Globulin Ratio (1-3) Lipase (11.0-82.0) U/L Urine Color Urine Appearance Urine pH (5-9) Ur Specific [place] (1.010-1.030) Urine Protein (Negative) Urine Ketones (Negative) Urine Blood (Negative) Urine Nitrate (Negative) Urine Bilirubin (Negative) Urine Urobilinogen (Negative) Ur Leukocyte Esterase (Negative) Urine Glucose (Negative) 04/25/17 04/25/17 04/25/17 Range/Units 03:07 04:00 04:00 WBC (3.5-10.8) 10^3/ul RBC (4.0-5.4) 10^6/ul Hgb (12.0-16.0) g/dl Hct (35-47) % MCV (80-97) fL MCH (27-31) pg MCHC (31-36) g/dl RDW (10.5-15) % Plt Count (150-450) 10^3/ul MPV (7.4-10.4) um3 Neut % (Auto) (38-83) % Lymph % (Auto) (25-47) % Boyd % (Auto) (1-9) % Eos % (Auto) (0-6) % Baso % (Auto) (0-2) % Absolute Neuts (auto) (1.5-7.7) 10^3/ul Absolute Lymphs (auto) (1.0-4.8) 10^3/ul Absolute Monos (auto) (0-0.8) 10^3/ul Absolute Eos (auto) (0-0.6) 10^3/ul Absolute Basos (auto) (0-0.2) 10^3/ul Absolute Nucleated RBC 10^3/ul Nucleated RBC % INR (Anticoag Therapy) (0.89-1.11) APTT (26.0-36.3) seconds VBG pH 7.28 L (7.33-7.43) VBG pCO2 39 L (41-51) mmHg VBG pO2 25 L (35-45) mmHg VBG HCO3 17.4 L (24-28) mmol/L VBG O2 Saturation 48.1 L (70-80) % VBG Base Excess -7.9 L (0-4) Sodium 136 (133-145) mmol/L Potassium 4.4 (3.5-5.0) mmol/L Chloride 105 (101-111) mmol/L Carbon Dioxide 17 L (22-32) mmol/L Anion Gap 14 H (2-11) mmol/L BUN 21 (6-24) mg/dL Creatinine 1.06 H (0.51-0.95) mg/dL Est GFR ( Amer) 66.7 (>60) Est GFR (Non-Af Amer) 51.9 (>60) BUN/Creatinine Ratio 19.8 (8-20) Glucose 232 H (70-100) mg/dL POC Glucose (mg/dL) 263 H (70-100) mg/dL Lactic Acid (0.5-2.0) mmol/L Calcium 8.1 L (8.6-10.3) mg/dL Total Bilirubin (0.2-1.0) mg/dL AST (13-39) U/L ALT (7-52) U/L Alkaline Phosphatase (34-104) U/L C-Reactive Protein (< 5.00) mg/L B-Natriuretic Peptide ( - 100) pg/mL Total Protein (6.4-8.9) g/dL Albumin (3.2-5.2) g/dL Globulin (2-4) g/dL Albumin/Globulin Ratio (1-3) Lipase (11.0-82.0) U/L Urine Color Urine Appearance Urine pH (5-9) Ur Specific [place] (1.010-1.030) Urine Protein (Negative) Urine Ketones (Negative) Urine Blood (Negative) Urine Nitrate (Negative) Urine Bilirubin (Negative) Urine Urobilinogen (Negative) Ur Leukocyte Esterase (Negative) Urine Glucose (Negative) 04/25/17 Range/Units 04:14 WBC (3.5-10.8) 10^3/ul RBC (4.0-5.4) 10^6/ul Hgb (12.0-16.0) g/dl Hct (35-47) % MCV (80-97) fL MCH (27-31) pg MCHC (31-36) g/dl RDW (10.5-15) % Plt Count (150-450) 10^3/ul MPV (7.4-10.4) um3 Neut % (Auto) (38-83) % Lymph % (Auto) (25-47) % Boyd % (Auto) (1-9) % Eos % (Auto) (0-6) % Baso % (Auto) (0-2) % Absolute Neuts (auto) (1.5-7.7) 10^3/ul Absolute Lymphs (auto) (1.0-4.8) 10^3/ul Absolute Monos (auto) (0-0.8) 10^3/ul Absolute Eos (auto) (0-0.6) 10^3/ul Absolute Basos (auto) (0-0.2) 10^3/ul Absolute Nucleated RBC 10^3/ul Nucleated RBC % INR (Anticoag Therapy) (0.89-1.11) APTT (26.0-36.3) seconds VBG pH (7.33-7.43) VBG pCO2 (41-51) mmHg VBG pO2 (35-45) mmHg VBG HCO3 (24-28) mmol/L VBG O2 Saturation (70-80) % VBG Base Excess (0-4) Sodium (133-145) mmol/L Potassium (3.5-5.0) mmol/L Chloride (101-111) mmol/L Carbon Dioxide (22-32) mmol/L Anion Gap (2-11) mmol/L BUN (6-24) mg/dL Creatinine (0.51-0.95) mg/dL Est GFR ( Amer) (>60) Est GFR (Non-Af Amer) (>60) BUN/Creatinine Ratio (8-20) Glucose (70-100) mg/dL POC Glucose (mg/dL) 228 H (70-100) mg/dL Lactic Acid (0.5-2.0) mmol/L Calcium (8.6-10.3) mg/dL Total Bilirubin (0.2-1.0) mg/dL AST (13-39) U/L ALT (7-52) U/L Alkaline Phosphatase (34-104) U/L C-Reactive Protein (< 5.00) mg/L B-Natriuretic Peptide ( - 100) pg/mL Total Protein (6.4-8.9) g/dL Albumin (3.2-5.2) g/dL Globulin (2-4) g/dL Albumin/Globulin Ratio (1-3) Lipase (11.0-82.0) U/L Urine Color Urine Appearance Urine pH (5-9) Ur Specific [place] (1.010-1.030) Urine Protein (Negative) Urine Ketones (Negative) Urine Blood (Negative) Urine Nitrate (Negative) Urine Bilirubin (Negative) Urine Urobilinogen (Negative) Ur Leukocyte Esterase (Negative) Urine Glucose (Negative) ECG, personally reviewed: sinus tachycardia rate 104, mild ST depression V4-5 CXR, personally reviewed: IMPRESSION: 1. NO EVIDENCE FOR ACUTE FINDING. 2. THERE IS A NODULAR DENSITY WHICH PROJECTS ABOVE THE RIGHT LUNG BASE. RECOMMEND REPEAT CHEST X-RAY WITH NIPPLE MARKERS. Impression: 67F presenting with N/V with finding of DKA, no identified infectious burden or cause DIAGNOSIS & PLAN Primary DKA : ICU : insulin GTT : IVFs : Q1H glucometry : Q4H BMP/VBG : supplemental oxygen : supportive care Secondary breast CA, left : continue anastrozole hepatitis C : no acute issues depression : continue paroxetine Admission Rational: inpatient for ICU management of DKA requiring close monitoring, frequent labwork, IVFs, & insulin GTT; inappropriate for outpatient setting DVTp: heparin SQ Code Status: full HCP:
[2017-04-25 06:00] LABS: Hematocrit 36 % (35-47); Hemoglobin 12.6 g/dl (12.0-16.0); Mean Corpuscular HGB Conc 35 g/dl (31-36); Mean Corpuscular Hemoglobin 34 pg (27-31); Mean Corpuscular Volume 98 fL (80-97); Mean Platelet Volume 9 um3 (7.4-10.4); Red Blood Count 3.72 10^6/ul (4.0-5.4); Red Cell Distribution Width 12 % (10.5-15); White Blood Count 10.8 10^3/ul (3.5-10.8)
[2017-04-25] MEDS: Omeprazole CAP* 20 MG PO SCH (06:01)
[2017-04-25] MEDS: Heparin VIAL(*) 5000 UNITS/ML VIAL (FIVE THOUSAND) SUBCUT SCH ×3 (06:01→21:16)
[2017-04-25] MEDS ORDERED: Influenza VAC *QUAD* 2017-18* 0.5 ML SYRINGE IM ONE (09:00)
[2017-04-25 09:36] LABS: Venous Bicarbonate HCO3 22.6 mmol/L (24-28)
[2017-04-25] MEDS: Docusate CAP* 100 MG PO SCH ×2 (09:36→21:16)
[2017-04-25] MEDS: CMCS:Anastrozole (NF) 1 MG TAB PO SCH (09:36)
[2017-04-25 09:49] LABS: BUN/Creatinine Ratio 18.6 (8-20); Calcium 7.6 mg/dL (8.6-10.3); EGFR African American 84.9 (>60); Potassium 3.7 mmol/L (3.5-5.0)
[2017-04-25] MEDS ORDERED: Insulin LISPRO* 1 UNITS UNIT SUBCUT ONE (11:15)
[2017-04-25 11:22] LABS: Troponin I 1.06 ng/mL (<0.04)
[2017-04-25 13:57] LABS: Magnesium 1.6 mg/dL (1.9-2.7)
[2017-04-25 14:05] LABS: Troponin I 1.01 ng/mL (<0.04)
[2017-04-25] MEDS: Insulin LISPRO* 1 UNITS UNIT SUBCUT SCH ×5 (14:15→20:47)
[2017-04-25] MEDS: NS 0.9% w/ 20 Meq KCL 1000 ML* 1,000 ML IV SCH (14:18)
[2017-04-25] MEDS ORDERED: Insulin LISPRO* 1 UNITS UNIT SUBCUT SCH (16:30)
[2017-04-25] MEDS ORDERED: Magnesium Sulfate 2 GM IV IVPB ONE (18:00)
[2017-04-25] MEDS: PARoxetine HCL TAB* 20 MG PO SCH (18:35)
[2017-04-25] MEDS: Insulin GLARGINE(*) 1 UNITS UNIT SUBCUT SCH (20:47)
[2017-04-26] MEDS: NS 0.9% w/ 20 Meq KCL 1000 ML* 1,000 ML IV SCH (00:42)
[2017-04-26] MEDS: Omeprazole CAP* 20 MG PO SCH (06:06)
[2017-04-26] MEDS: Heparin VIAL(*) 5000 UNITS/ML VIAL (FIVE THOUSAND) SUBCUT SCH ×3 (06:06→20:38)
[2017-04-26 06:35] LABS: Hematocrit 33 % (35-47); Hemoglobin 11.4 g/dl (12.0-16.0); Mean Corpuscular HGB Conc 35 g/dl (31-36); Mean Corpuscular Hemoglobin 35 pg (27-31); Mean Corpuscular Volume 99 fL (80-97); Mean Platelet Volume 9 um3 (7.4-10.4); Red Cell Distribution Width 13 % (10.5-15); White Blood Count 4.8 10^3/ul (3.5-10.8)
[2017-04-26 06:52] LABS: Albumin 2.7 g/dL (3.2-5.2); BUN/Creatinine Ratio 13.7 (8-20); Calcium 6.9 mg/dL (8.6-10.3); EGFR African American 155.2 (>60); EGFR Non-African American 120.7 (>60); Globulin 1.9 g/dL (2-4); Magnesium 1.6 mg/dL (1.9-2.7); Phosphorus 1.6 mg/dL (2.5-5.0); Potassium 3.4 mmol/L (3.5-5.0); Total Bilirubin 0.4 mg/dL (0.2-1.0); Total Protein 4.6 g/dL (6.4-8.9)
[2017-04-26 07:05] LABS: Troponin I 0.55 ng/mL (<0.04)
[2017-04-26] MEDS: Docusate CAP* 100 MG PO SCH (07:50)
[2017-04-26] MEDS: CMCS:Anastrozole (NF) 1 MG TAB PO SCH (07:50)
[2017-04-26] MEDS: Insulin LISPRO* 1 UNITS UNIT SUBCUT SCH ×7 (07:52→20:33)
--- NOTE | 2017-04-26 11:42 | ECHO ---
Patient: TILA JARA [facility] Rec#: [id number] : 1950 Date: 04/26/2017 Age: 67y Height: 152.4 cm / 60.0 in Weight: 54.43 kg / 120.0 lbs Sex: F BSA: 1.5 Room#: [facility]8 Admit Date#: 04/25/2017 Type: Inpatient Referring: Anya Pagan MD Reading: Bala Mccartney MD Pattern Assembler: Radha Mcdowell STANLEY CC: Fran Meléndez MD Transthoracic Echocardiogram Indication: ACS//DKA BP: 145/81 HR: 80 Rhythm: NSR Findings History: DM with retinopathy, left breast cancer,HepC+. Technical Comments: The study quality is good. Completed at 1110. Left Ventricle: The left ventricular chamber size is decreased. Global left ventricular wall motion and contractility are within normal limits. There is normal left ventricular systolic function. The estimated ejection fraction is 55-60%. Abnormal left ventricular diastolic filling is observed, consistent with impaired relaxation. Left Atrium: The left atrial chamber size is normal. Right Ventricle: The right ventricular cavity size is normal. The right ventricular global systolic function is normal. Right Atrium: The right atrium is mildly dilated. Aortic Valve: The aortic valve is trileaflet. The aortic valve leaflets are mildly thickened. There is no evidence of aortic regurgitation. There is no evidence of aortic stenosis. Mitral Valve: The mitral valve leaflets are mildly thickened. There is a trace of mitral regurgitation. Tricuspid Valve: The tricuspid valve leaflets are normal. There is trace to mild tricuspid regurgitation. There is evidence of mild pulmonary hypertension. Pulmonic Valve: The pulmonic valve appears normal. There is a trace pulmonic regurgitation. There is no pulmonic stenosis. Pericardium: There is no significant pericardial effusion. Aorta: There is no dilatation of the ascending aorta. There is no dilatation of the aortic arch. There is no dilation of the aortic root. Pulmonary Artery: The main pulmonary artery is not well visualized. Venous: The inferior vena cava appears normal in size. There is a greater than 50% respiratory change in the inferior vena cava dimension. Conclusions There is normal left ventricular systolic function. The estimated ejection fraction is 55-60%. Global left ventricular wall motion and contractility are within normal limits. The left ventricular chamber size is decreased. Abnormal left ventricular diastolic filling is observed, consistent with impaired relaxation. The right atrium is mildly dilated. Functionally benign heart valves. There is evidence of mild pulmonary hypertension. Since the prior echocardiogram completed 08/31/12, pertinent change is prior normal left ventricular size noted. Measurements Name Value Normal Range RVIDd (AP) 2D 2.6 cm (0.9 - 2.6) RVDdMajor (2D) 3.4 cm (2.2 - 4.4) RAd ISD 4CH 5.1 cm (3.4 - 4.9) RA (A4C)W 4.1 cm (2.9 - 4.6) IVSd (2D) 1 cm (0.6 - 1) LVPWd (2D) 1.2 cm (0.6 - 1) LVIDd (2D) 3.5 cm (3.6 - 5.4) LVIDs (2D) 2.2 cm - LV FS (2D) 38 % (25 - 45) Aortic Annulus 2 cm (1.4 - 2.6) Ao root diameter (2D) 3.2 cm (2.1 - 3.5) Ascending Ao 3.3 cm (2.1 - 3.4) Aortic arch 2.2 cm (1.8 - 3.4) Descending Ao 0.8 cm - LA dimension (AP) 2D 3.5 cm (2.3 - 3.8) LAd ISD 4CH 5.3 cm (2.9 - 5.3) LA ISD 4CH W 4.2 cm (2.5 - 4.5) Name Value Normal Range LA ESV SP 4CH (A/L) 48 ml - LA ESV SP 2CH (A/L) 43 ml - LA ESV BP (A/L) 51 ml - LA ESV BP (A/L) index 34.21 ml/m2 - LA ESV SP 4CH (MOD) 44 ml - LA ESV SP 2CH (MOD) 40 ml - Name Value Normal Range MV E-wave Vmax 1.2 m/sec - MV deceleration time 193 msec - MV A-wave Vmax 1.2 m/sec - MV E:A ratio 0.99 ratio - LV septal e' Vmax 0.07 m/sec - LV lateral e' Vmax 0.11 m/sec - LV E:e' septal ratio 17.14 ratio - LV E:e' lateral ratio 10.9 ratio - Name Value Normal Range AV Vmax 1.7 m/sec - AV VTI 32.8 cm - AV peak gradient 11.06 mmHg - AV mean gradient 5.82 mmHg - LVOT Vmax 1.4 m/sec - LVOT VTI 31.3 cm - LVOT peak gradient 8.29 mmHg - LVOT mean gradient 4.73 mmHg - Name Value Normal Range TR Vmax 2.9 m/sec - TR peak gradient 33 mmHg - RAP 3 mmHg - RVSP 36 mmHg - IVC diameter 1.8 cm - Name Value Normal Range PV Vmax 1 m/sec - PV peak gradient 3.94 mmHg -
[2017-04-26] MEDS: Aspirin EC Low Dose* 81 MG TAB.EC PO SCH (12:35)
[2017-04-26] MEDS: Lisinopril TAB* 10 MG PO SCH (12:35)
[2017-04-26] MEDS: Atorvastatin* 80 MG TAB PO SCH (12:35)
[2017-04-26] MEDS: Magnesium Sulfate 2 GM IV IVPB SCH ×2 (12:35→20:42)
[2017-04-26 12:46] LABS: HDL Cholesterol 49.5 mg/dL
[2017-04-26] MEDS: Potassium Chlor TAB* 20 MEQ TAB.ER PO SCH ×2 (15:13→20:41)
[2017-04-26] MEDS: Potassium & Sodium Phos 250MG* = 1 PACKET PO SCH ×2 (15:13→20:39)
[2017-04-26] MEDS: PARoxetine HCL TAB* 20 MG PO SCH (17:47)
[2017-04-26] MEDS: Insulin GLARGINE(*) 1 UNITS UNIT SUBCUT SCH (20:35)
[2017-04-27] MEDS: Magnesium Sulfate 2 GM IV IVPB SCH ×2 (04:26→14:32)
[2017-04-27] MEDS: Omeprazole CAP* 20 MG PO SCH (05:54)
[2017-04-27] MEDS: Heparin VIAL(*) 5000 UNITS/ML VIAL (FIVE THOUSAND) SUBCUT SCH ×2 (05:55→14:39)
--- NOTE | 2017-04-27 08:10 | PN ---
Subjective - Subjective Reason for Note: Discharge Note History: Contingent discharge note - dependent upon cardiac stress test. I have learned Shy Jara's presentation from the patient and also from the admitting history and physical, and from Dr. Anya Pagan's sign off/chart notes. She developed an acute onset of nausea and vomiting following eating a spinach salad. The spinach came pre-packed and she didn't wash the leaves. She had no diarrhea. She had no symptoms otherwise of acute cardiac disease - in particular no chest pain, shortness of breath, palpitations or radiation of symptoms to neck/arms or back. She developed DKA. She had an elevated troponin I, but not specific EKG changes. The troponin I level is coming down. She was initially managed with water and electrolyte resuscitation and insulin on the ICU. After this came under control she was transferred to the telemetry floor. She was able to eat and drink normally yesterday. This morning she was hypoglycemic as I entered and drinking orange juice. Today she has no chest pain, shortness of breath or palpitations. She is no longer nauseated and is able to eat and drink. She is awaiting a NM stress test. Active Problems: Active Problems Diabetic ketoacidosis (Acute) E13.10 Elevated troponin I level (Acute) R74.8 Nausea and vomiting (Acute) R11.2 Depressive disorder (Chronic) F32.9 Essential hypertension (Chronic) I10 Hearing loss (Chronic) H91.90 History of hepatitis C (Chronic) Z86.19 History of left breast cancer (Chronic) Z85.3 Type 1 diabetes mellitus with background retinopathy (Chronic) E10.329 Current Medications: Current Medications Acetaminophen (Tylenol Tab*) 650 mg PO Q6H PRN PRN Reason: FEVER/PAIN Albuterol (Ventolin 2.5 Mg/3 Ml Neb.Leidy*) 2.5 mg INH Q2H PRN PRN Reason: SOB/WHEEZING Anastrozole (Arimidex (Nf)) 1 mg PO DAILY [facility] Last Admin: 04/26/17 07:50 Dose: 1 mg Aspirin (Aspirin Ec Low Dose*) 81 mg PO DAILY [facility] Last Admin: 04/26/17 12:35 Dose: 81 mg Atorvastatin Calcium (Lipitor*) 80 mg PO DAILY [facility] Last Admin: 04/26/17 12:35 Dose: 80 mg Heparin Sodium (Porcine) (Heparin Vial(*)) 5,000 units SUBCUT Q8HR [facility] Last Admin: 04/27/17 05:55 Dose: 5,000 units Magnesium Sulfate (Magnesium Sulfate 2 Gm Iv*) 2 gm in 50 mls @ 50 mls/hr IVPB Q8H [facility] Last Admin: 04/27/17 04:26 Dose: 50 mls/hr Insulin Glargine (Lantus(*)) 20 units SUBCUT BEDTIME [facility] Last Admin: 04/26/17 20:35 Dose: 20 units Insulin Human Lispro (Humalog*) 0 units SUBCUT ACHS [facility] PRN Reason: Protocol Last Admin: 04/26/17 20:33 Dose: 1 units Insulin Human Lispro (Humalog*) 0 units SUBCUT 0730,1200,1630 [facility] PRN Reason: Protocol Last Admin: 04/26/17 17:49 Dose: 1 units Lisinopril (Prinivil Tab*) 10 mg PO DAILY [facility] Last Admin: 04/26/17 12:35 Dose: 10 mg Melatonin (Melatonin (Nf)) 3 mg PO BEDTIME PRN; Protocol PRN Reason: Sleep Omeprazole (Prilosec Cap*) 20 mg PO DAILY@0600 [facility] Last Admin: 04/27/17 05:54 Dose: 20 mg Ondansetron HCl (Zofran Inj*) 4 mg IV Q6H PRN PRN Reason: NAUSEA Paroxetine HCl (Paxil Tab*) 20 mg PO QPM [facility] Last Admin: 04/26/17 17:47 Dose: 20 mg Potassium Chloride (Klor Con Er Tab*) 20 meq PO TID [facility] Stop: 04/27/17 09:01 Last Admin: 04/26/17 20:41 Dose: 20 meq Potassium Phos/Sodium Phos (Neutra Phos 250 Mg Omar*) 250 mg PO TID [facility] Last Admin: 04/26/17 20:39 Dose: 250 mg Home Medications: Home Medications Medication Instructions Recorded Confirmed Type Lisinopril TAB* [Prinivil TAB 10 20 mg PO QPM 08/31/12 04/25/17 History MG*] PARoxetine HCL TAB* [Paxil TAB*] 20 mg PO QPM 08/31/12 04/25/17 History Multiple Vitamins 1 tab PO DAILY 07/25/15 04/25/17 History Vitamin D 1,000 mg PO DAILY 07/25/15 04/25/17 History Anastrozole 1 mg PO DAILY 02/05/16 04/25/17 History Insulin GLARGINE(*) [Lantus(*)] 20 units SUBCUT BEDTIME 04/08/16 04/25/17 History Insulin LISPRO* [HumaLOG*] 0 unit SUBCUT AC 04/08/16 04/25/17 History Zoledronic/Mannitol 5 MG/100ML 04/24/17 History [Reclast 5 MG/100ML] Allergies: Allergies Allergy/AdvReac Type Severity Reaction Status Date / Time No Known Allergies Allergy Verified 04/24/17 18:33 Objective - Vital Signs Vital Signs: Vital Signs 04/26/17 04/26/17 04/26/17 09:00 09:01 09:27 Temperature 98.6 F 98.6 F 98.6 F Pulse Rate 84 73 77 Respiratory 17 Rate Blood Pressure 166/149 150/77 (mmHg) O2 Sat by Pulse 94 96 94 Oximetry 04/26/17 04/26/17 04/26/17 10:00 10:01 10:57 Temperature 98.6 F 98.8 F Pulse Rate 81 75 Respiratory 17 9 19 Rate Blood Pressure 155/93 (mmHg) O2 Sat by Pulse 94 98 Oximetry 04/26/17 04/26/17 04/26/17 11:00 11:01 12:00 Temperature 99.0 F 99.0 F 99.1 F Pulse Rate 80 82 82 Respiratory 18 22 21 Rate Blood Pressure 133/80 146/87 (mmHg) O2 Sat by Pulse 96 97 96 Oximetry 04/26/17 04/26/17 04/26/17 12:01 13:00 13:01 Temperature 99.1 F Pulse Rate 77 74 70 Respiratory 16 15 16 Rate Blood Pressure 127/66 (mmHg) O2 Sat by Pulse 97 96 96 Oximetry 04/26/17 04/26/17 04/26/17 14:00 14:14 15:00 Temperature 98.8 F Pulse Rate 77 Respiratory 20 20 20 Rate Blood Pressure 122/63 (mmHg) O2 Sat by Pulse 98 Oximetry 04/26/17 04/26/17 04/26/17 16:04 20:00 20:21 Temperature 98.7 F 98.3 F Pulse Rate 87 69 Respiratory 16 16 16 Rate Blood Pressure 128/62 126/61 (mmHg) O2 Sat by Pulse 97 98 Oximetry 04/26/17 04/27/17 23:29 04:07 Temperature 98.4 F 98.5 F Pulse Rate 67 67 Respiratory 16 16 Rate Blood Pressure 139/74 125/66 (mmHg) O2 Sat by Pulse 96 97 Oximetry - Intake and Output Intake and Output: Intake & Output 04/24/17 04/25/17 04/26/17 04/27/17 11:59 11:59 11:59 11:59 Intake Total 2412.4 4266 1540 Output Total 600 2100 475 Balance 1812.4 2166 1065 Weight 120 lb 9.486 oz 123 lb 7.342 oz Intake: IV Fluids 1982 2879 670 D5W NS 20 meq KCL 656 Magnesium Sulfate 2 g 60 159 NS 983 1456 NS (0.9%) 20 meq KCL 707 511 IVPB 120 Magnesium Sulfate 2 g 120 Medicated IV 29.4 CC - Insulin 29.4 Oral 400 1387 750 Output: Urine 475 Main 600 2100 Other: Date of Last Bowel 04/26/17 Movement # Bowel Movements 1 0 Estimated Stool Amount Medium # Voids 0 ADLs: Meal Record Start: 04/24/17 23: 04 Freq: 09,13,18 Status: Inactive Document 04/25/17 10:41 [id number] (Rec: 04/25/17 10:42 [id number] ICU-C06) Document 04/25/17 13:00 [id number] (Rec: 04/25/17 15:01 [id number] ICU-C06) Document 04/25/17 18:00 [id number] (Rec: 04/25/17 18:46 [id number] ICU-C06) Document 04/26/17 09:00 [id number] (Rec: 04/26/17 10:03 [id number] ICU-C06) Document 04/26/17 13:00 [id number] (Rec: 04/26/17 13:40 [id number] ICU-C06) ADLs: Meal Record Start: 04/26/17 15: 59 Freq: DAILY@0900,1400,1800 Status: Active Created 04/26/17 15:59 (Rec: 04/26/17 15:59 TELE-C05) Document 04/26/17 17:38 [id number] (Rec: 04/26/17 17:39 [id number] TELE-C07) Intake and Output Start: 04/24/17 23: 04 Freq: 06,14,22 Status: Inactive Document 04/25/17 05:50 [id number] (Rec: 04/25/17 05:55 [id number] ICU-M12) Document 04/25/17 14:00 [id number] (Rec: 04/25/17 14:21 [id number] ICU-M12) Document 04/25/17 14:57 [id number] (Rec: 04/25/17 14:57 [id number] ICU-C06) Document 04/25/17 18:44 [id number] (Rec: 04/25/17 18:45 [id number] ICU-C06) Document 04/25/17 22:00 [id number] (Rec: 04/25/17 22:05 [id number] ICU-M12) Document 04/26/17 06:00 [id number] (Rec: 04/26/17 06:22 [id number] ICU-M12) Document 04/26/17 10:19 [id number] (Rec: 04/26/17 10:19 [id number] ICU-C06) Document 04/26/17 12:22 [id number] (Rec: 04/26/17 12:22 [id number] ICU-M12) Document 04/26/17 14:00 [id number] (Rec: 04/26/17 15:53 [id number] TELE-C05) Intake and Output Start: 04/26/17 15: 59 Freq: DAILY@0600,1400,2200 Status: Active Created 04/26/17 15:59 [id number] (Rec: 04/26/17 15:59 [id number] TELE-C05) Document 04/26/17 22:00 [id number] (Rec: 04/26/17 22:30 [id number] TELE-C07) Document 04/27/17 06:00 [id number] (Rec: 04/27/17 06:50 [id number] TELE-C07) - Physical Exam General Physical Exam Comment: Warm and well prefused. She is hemodynamically stable. She has some disorientation related to the hypoglycemia. General: No Cyanosis, No Anemia, No Jaundice, No Lymphadenopathy, No Clubbing Lungs and Chest: Yes: Chest Expansion Full, Chest Expansion Symetrica, Percussion Note Resonant, Vessicular Breath Sounds. No: Crackles, Wheezes Heart Rate and Rhythm: Regular JVP: Not Elevated Additional Cardiovascular: Yes: Normal Heart Sounds. No: Heart Murmur, Pedal Edema Abdominal Exam: Yes: Soft, Bowel Sounds Present. No: Distention, Abdominal Mass , Hepatomegaly Results - Results Lab Results: Laboratory Results - last 24 hr 04/26/17 04/26/17 04/26/17 06:17 12:26 16:14 POC Glucose (mg/dL) 213 H 222 H Triglycerides 121 Cholesterol 136 LDL Cholesterol 62 HDL Cholesterol 49.5 04/26/17 19:50 POC Glucose (mg/dL) 161 H Triglycerides Cholesterol LDL Cholesterol HDL Cholesterol Radiology Results: Patient Name: SHY JARA Medical Record#: [id number] Ordering Physician: John Silva MD Acct.#: [id number] : 1950 Age: 67 Sex: F Location: EMERGENCY DEPARTMENT Exam Date: 04/24/172105 ADM Status: REG ER Order Information: CHEST AP PORTABLE Accession Number: [id number] CPT: 88668 INDICATION: Tachycardia. COMPARISON: Comparison is made with a prior study from April 09, 2016. TECHNIQUE: A portable view of the chest was obtained. FINDINGS: Cardiac and mediastinal contours appear to be within normal limits. There is a 1.2 cm nodular density which projects above the right lung base possibly representing a nipple shadow. Recommend repeat chest film with nipple markers. There are curvilinear densities which project above the left lung base. This was in the region of a prior pneumonia and may represent areas of scarring. The lungs are otherwise clear. No pleural effusion is seen. IMPRESSION: 1. NO EVIDENCE FOR ACUTE FINDING. 2. THERE IS A NODULAR DENSITY WHICH PROJECTS ABOVE THE RIGHT LUNG BASE. RECOMMEND REPEAT CHEST X-RAY WITH NIPPLE MARKERS. <Electronically signed by Chi Escobar MD in OV> 04/24/172135 Dictated By: Chi Escobar MD Dictated Date/Time: 04/24/172135 Transcribed Date/Time: 04/24/172132 Copy to: CC:Fran Meléndez MD; John Silva MD Imaging - [facility] Imaging - [facility] Imaging - [facility] [id number] [place] [id number] [place] [address] ph ([phone]) ph ([phone]) ph ([phone]) 1 of 1 Other Results/Reports: Conclusions transthoracic echocardiogram There is normal left ventricular systolic function. The estimated ejection fraction is 55-60%. Global left ventricular wall motion and contractility are within normal limits. The left ventricular chamber size is decreased. Abnormal left ventricular diastolic filling is observed, consistent with impaired relaxation. The right atrium is mildly dilated. Functionally benign heart valves. There is evidence of mild pulmonary hypertension. Since the prior echocardiogram completed 08/31/12, pertinent change is prior normal left ventricular size noted. Assessment - Problem List Assessment: Patient Problems Diabetic ketoacidosis (Acute) Elevated troponin I level (Acute) Nausea and vomiting (Acute) Depressive disorder (Chronic) Essential hypertension (Chronic) Hearing loss (Chronic) History of hepatitis C (Chronic) History of left breast cancer (Chronic) Type 1 diabetes mellitus with background retinopathy (Chronic) Plan: Diabetic ketoacidosis (Acute) This is resolved. This morning she was hypoglycemic. She is eating and drinking normally. She usually takes lantus 30 units at home, and only received 20 units yesterday evening - hence she is more insulin sensitive, or had more active insulin in her system from boluses yesterday. She usually has suboptimal glycemic control - her last A1c on 2016 was 8.5%. Elevated troponin I level (Acute) The echocardiogram shows no regional wall abnormalities and there is a normal ejection fraction. There is a literature* surrounding elevated troponin I in association with DKA. These studies are retrospective and therefore it is not possible to draw strong conclusions aside from associations. It appears that a proportion may related directly to acute coronary artery disease. However, many do not. However, it appears to be a marker for a poorer outcomes. There are no prospective studies to help us with a management plan, but the advise appears to be to watch risk factors carefully for CAD. I note that risk stratification was performed only in a subset of patients in retrospective studies. We are proceeding to this today - and I think this is appropriate. I will work on helping her improve her glycemic control and also reducing the risk factors for CAD as an outpatient. If she has a positive risk stratification I will obtain a cardiology consultation for further work up and management Nausea and vomiting (Acute) This is resolved and may have been due to food poisoning or alternatively the acute event may have been DKA. I suspect the former. Depressive disorder (Chronic) secondary diagnosis Essential hypertension (Chronic) Well controlled Hearing loss (Chronic) secondary diagnosis History of hepatitis C (Chronic) secondary diagnosis History of left breast cancer (Chronic) secondary diagnosis Type 1 diabetes mellitus with background retinopathy (Chronic) See above. I have discussed the above with the patient. In view of her hypoglycemia, I expect she will not retain all I have said and I will return and speak with her after this is improved. *[facility] 2013 November;54(5):127-30. Significance of elevated cardiac troponin I in patients with diabetic ketoacidosis. [employer]. Author information Abstract BACKGROUND: Cardiac troponin I displays significant prognostic value in acute coronary syndromes and in other non-coronary conditions and systemic illnesses. Elevated levels of this biomarker in the setting of diabetic ketoacidosis may also provide useful prognostic information regarding outcome. METHODS: A systematic review of the Indian language medical literature was performed using PubMed. Articles reporting original data on major clinical outcomes on cohorts of patients were included. RESULTS: Three reports examining the relationship between cardiac troponin I and clinical outcomes in patients with diabetic ketoacidosis qualified for review. A spectrum of electrolyte and cardiac abnormalities were observed in the studied populations which were more frequent in those with troponin elevations. Short- and long-term outcomes appeared worse for patients with elevated troponin levels, but small study populations and other experimental issues including concurrent diseases which could have confounded the apparent relationship between troponin concentrations and outcome reduced the confidence of the findings. CONCLUSIONS: The available literature suggests an association between elevated cardiac- specific troponin I serum concentrations and clinical outcomes among diabetic patients with ketoacidosis, but data are insufficient to draw conclusions at this time. Large prospective observational studies which exclude or control for other conditions which could contribute to troponin release will be needed before the predictive value of this biomarker in ketoacidosis can be reliably defined. *Clin Cardiol. 2007;31(2):67-71. doi: 10.1002/clc.34050. Positive troponin in diabetic ketoacidosis without evident acute coronary syndrome predicts adverse cardiac events. Luís-Marie M1, Renée O, Abby M, Evelyn PANTOJA. Author information Abstract BACKGROUND: Elevated troponin I has been associated with increased mortality in critically ill patients without acute coronary syndrome (ACS). However, the prognostic significance of troponin elevation in patients with diabetic ketoacidosis (DKA) without evident ACS has not been studied. METHODS: Retrospective study of all patients admitted to a .S. tertiary center between and with DKA and had troponin I level measured. Patients with evidence of ACS or who met the [place] [employer]/ Society of Cardiology (ACC/ESC) definition for myocardial infarction were excluded. Baseline characteristics, cardiac evaluation and 2 year major adverse coronary event (MACE) rate were compared between patients with positive and negative troponin. RESULTS: Ninety-six patients fulfilled the inclusion criteria of this study, 26 had positive troponin. There were no differences in baseline characteristics between the two groups. After a 2 year follow-up, there was significantly increased mortality in patients with elevated troponin (50.0% versus 27.1%, hazard-ratio (HR) 2.3, 95% confidence interval (CI) 1.2-4.8, p = 0.02). Patients with elevated troponin also had significantly increased MACE rate at 2 years (50.0% versus 28.6%, HR 2.6, 95% CI 1.3-5.3, p = 0.007) driven primarily by mortality. Using Dukes Proportional Hazard Analysis, elevated troponin was a predictor of increased MACE after adjusting for confounding variables. ( Adjusted HR 2.3, 95% CI 1.1-4.6, p = 0.02) CONCLUSIONS: Elevated troponin I in diabetic patients admitted with DKA identifies a group at very high risk for future cardiac events and mortality. Whether cardiac risk stratification of these patients will improve halfway outcome remains to be studied.
[2017-04-27] MEDS: Insulin LISPRO* 1 UNITS UNIT SUBCUT SCH ×4 (08:26→14:32)
[2017-04-27] MEDS ORDERED: Regadenoson* 0.4 MG/5 ML SYRINGE ONE (12:23)
[2017-04-27] MEDS ORDERED: Aminophylline IV* 25 MG/ML 10 ML VIAL ONE (12:24)
[2017-04-27] MEDS: Potassium & Sodium Phos 250MG* = 1 PACKET PO SCH ×2 (13:21→14:39)
[2017-04-27] MEDS: Potassium Chlor TAB* 20 MEQ TAB.ER PO SCH (13:21)
[2017-04-27 13:22] VITALS: BP 155/69
--- NOTE | 2017-04-27 14:05 | RAD ---
Edited for charges. INDICATION: Elevated troponins in a patient with diabetes and hypertension COMPARISON: Chest x-ray dated April 24, 2017 TECHNIQUE: SPECT imaging was performed. Rest images were acquired following the intravenous injection of 10.32 millicuries of technetium 99m tetrofosmin at 0902 hours. At 1239 hours stress images were acquired following the intravenous administration of 25 millicuries of technetium 99m tetrofosmin. The patient received intravenous Lexiscan prior to the stress image acquisition. FINDINGS: There are no defects of the stress-induced or fixed nature. The cardiac chamber size is normal. There are no wall motion abnormalities. The ejection fraction is calculated at 68% during stress. IMPRESSION: No scintigraphic evidence of ischemia or infarction. ASSESSMENT: Low risk Based on imaging criteria from ACC/AHA 2002 Guideline Update for the Management of Patients With Chronic Stable Angina Table 23. Noninvasive Risk Stratification. MTDD
[2017-04-27] MEDS: CMCS:Anastrozole (NF) 1 MG TAB PO SCH (14:31)
[2017-04-27] MEDS: Atorvastatin* 80 MG TAB PO SCH (14:31)
[2017-04-27] MEDS: Aspirin EC Low Dose* 81 MG TAB.EC PO SCH (14:31)
[2017-04-27] MEDS: Lisinopril TAB* 10 MG PO SCH (14:32)
--- NOTE | 2017-04-27 15:22 | PN ---
Progress Note - Progress Note Date of Service: 04/27/17 Note: Discharge Summary (contd) Nuclear Medicine stress test: Patient Name: TILA JARA Medical Record#: [id number] Ordering Physician: Anya Pagan MD Acct.#: [id number] : 1950 Age: 67 Sex: F Location: [address] [place] [address]/TELEMETRY Exam Date: 04/27/17 0800 ADM Status: ADM IN Order Information: NUCLEAR CARDIAC STRESS TEST Accession Number: [id number] CPT: 49954 INDICATION: Elevated troponins in a patient with diabetes and hypertension COMPARISON: Chest x-ray dated April 24, 2017 TECHNIQUE: SPECT imaging was performed. Rest images were acquired following the intravenous injection of 10.32 millicuries of technetium 99m tetrofosmin at 0902 hours. At 1239 hours stress images were acquired following the intravenous administration of 25 millicuries of technetium 99m tetrofosmin. The patient received intravenous Lexiscan prior to the stress image acquisition. FINDINGS: There are no defects of the stress-induced or fixed nature. The cardiac chamber size is normal. There are no wall motion abnormalities. The ejection fraction is calculated at 68% during stress. IMPRESSION: No scintigraphic evidence of ischemia or infarction. ASSESSMENT: Low risk Based on imaging criteria from ACC/AHA 2002 Guideline Update for the Management of Patients With Chronic Stable Angina Table 23. Noninvasive Risk Stratification. <Electronically signed by Francesco Cooper MD in OV> 04/27/17 1402 Dictated By: Francesco Cooper MD Dictated Date/Time: 04/27/17 1402 Transcribed Date/Time: 04/27/17 1342 Copy to: CC:Fran Meléndez MD; Anya Pagan MD; Ismael Orta MD Imaging - [facility] Imaging - [facility] Imaging [facility] [address] [address] ph ([phone]) ph ([phone]) ph ([phone]) Assessment and Plan: This is a low risk stress test. I have discharged her home. She will return to my office in 2 - 3 days and I will then discuss cardiovascular risk reduction as a high troponin I level with DKA denotes higher risk
--- NOTE | 2017-04-29 10:33 | DS ---
DISCHARGE SUMMARY: DATE OF ADMISSION: 04/24/17 DATE OF DISCHARGE: 04/27/17 DISCHARGE DIAGNOSES: 1. Diabetic ketoacidosis. 2. Gastroenteritis. 3. Elevated troponin I level. HISTORY OF PRESENT ILLNESS: Shy Mchugh is a 67-year-old white female. Her presentation is documented in Dr. Ismael Orta's admitting history and physical. In short, she developed nausea and vomiting, which had onset at 3 a.m., which continued. She went to the emergency room owing to high blood sugars and presented with diabetic ketoacidosis. She tells me that this occurred after eating a spinach salad, which was prepackaged. She had not washed it; otherwise no particular contacts or travel. She denied any chest pain, shortness of breath, or palpitations. PHYSICAL EXAMINATION: In the emergency room, temperature 36.9 degrees Celsius, pulse 94, respirations 16, blood pressure 104/56, oxygen saturation 98%. Lungs were clear. Cardiovascular System: Normal heart sounds. Venous pressure was not distended. No edema. Pedal pulses are present. No carotid bruits. Abdomen is nontender, nondistended. No rebound, guarding, or rigidity. Normal bowel sounds. No hepatomegaly. She was alert and oriented. INVESTIGATIONS/IMAGING: Chemistry: Sodium 134, potassium 4.1, chloride 95, bicarbonate 13, anion gap 26, creatinine 1.02, eGFR of 54.2, glucose 308, calcium 9.5, lactic acid 2.6. Normal LFTs. BNP was 334. Troponin I 1.06. Venous blood gases, pH 7.19, pCO2 31, bicarbonate 12.1, base excess -15.1. CBC : White count 11.2, hemoglobin 14.1, hematocrit 42, platelets 212, neutrophils 87.4%. On 04/24/2017, chest x-ray, no acute finding, moderate density opacity above the right lung base. Repeat of chest x-ray was advised. A 12-lead EKG, rate 117, VT interval 145, QTc 49, QRS 570, sinus tachycardia, poor R-wave progression. On 04/25/2017, transthoracic echocardiogram, impression: Normal systolic function, ejection fraction 55% to 60%, global LV wall motion contractility were normal. Mildly dilated right atrium, normal heart valves, mild pulmonary hypertension. Nuclear medicine stress test, 05/01/17, low risk. INITIAL ASSESSMENT AND PLAN: Diabetic ketoacidosis, no identified infectious burden or cause. She was admitted to the ICU, started on insulin infusion, given IV fluids, q. 1 hour glucometry, q. 4 hours BMP, and venous blood gases, supplemental oxygen, and supportive care. HOSPITAL COURSE: She was initially managed in the ICU, was begun IV fluid and IV insulin, venous blood gases were followed and by 04/25/17 at 9:20 in the morning, the pH was 7.35. Venous blood gas pCO2 was 43, bicarbonate 22.6. She had no further problems with nausea, vomiting or diarrhea. She was transferred to a regular medical bed. She did not develop any cardiac symptoms. On the day of discharge, she was feeling much better. She had a normal appetite , her blood glucose had come under control again. She had no other new symptoms. PHYSICAL EXAMINATION: She is warm and well perfused. Vital Signs: Temperature 98.5, pulse rate 67, respirations 16, blood pressure 125/66, oximetry was 97%. She had no cyanosis, jaundice, clubbing, or adenopathy. Cardiovascular System: Pulse was regular. Normal carotid volume, fadi pressure elevated. Heart sounds normal. No added sounds are noted. No pedal edema. Pedal pulses present. No carotid bruits. Chest is clear. Abdomen: Soft, nondistended. Bowel sounds normal. No masses, tenderness, organomegaly. Nervous System: She is alert and oriented. Normal speech. Moves her arms and legs normally. As noted above, she underwent a nuclear medicine chemical stress, which was benign. ASSESSMENT AND PLAN: 1. Diabetic ketoacidosis. The underlying source of this was likely some gastroenteritis or food poisoning, which was short lived. She responded well to IV rehydration and intensive insulin therapy. On the day of discharge, she was eating normally and was back to her normal insulin regimen. 2. Elevated troponin I levels. She had a significant elevation of troponin I levels. The literature addresses the coincidence of elevated troponin I levels with diabetic ketoacidosis and only small portion of these patients have evidence of myocardial ischemia; however, it does flag an increased mortality and poor outcomes in patients. We checked cardiac risk stratification. I will address cardiac risk status as an outpatient after discharge. 3. Essential hypertension. This is well controlled. DISCHARGE MEDICATIONS: 1. Lisinopril 20 mg q.h.s. 2. Atorvastatin 20 mg q.h.s. 3. Vitamin D 1000 units daily. 4. Multivitamin 1 tablet daily. 5. Anastrozole 1 mg every day. 6. Glargine insulin 20 units q.h.s. 7. Lispro insulin dosing by carbohydrate counting. She was offered an office visit within 3 days and was given instructions concerning her diabetes management. [id number]/[facility] #: [id number] HI
== END 2017-04-27 16:35 | disposition home or self-care (01) | DRG 420 ==
LOC: ED 20:04 → ICU 22:06 → MEDTELE 04-26 14:03
PROVIDERS: ADMIT Hospitalist; ATTEND Internal Medicine
PROC: 3E0234Z Introduction of Serum, Toxoid and Vaccine into Muscle, Percutaneous Approach (ICD-10-PCS; principal; 2017-04-25)
DX: E10.10 Type 1 diabetes mellitus with ketoacidosis without coma (principal); E10.649 Type 1 diabetes mellitus with hypoglycemia without coma; C50.912 Malignant neoplasm of unspecified site of left female breast; E83.42 Hypomagnesemia; E83.39 Other disorders of phosphorus metabolism; I27.20 Pulmonary hypertension, unspecified; E10.319 Type 1 diabetes mellitus with unspecified diabetic retinopathy without macular edema; F32.9 Major depressive disorder, single episode, unspecified; B19.20 Unspecified viral hepatitis C without hepatic coma; I10 Essential (primary) hypertension; J42 Unspecified chronic bronchitis; M19.042 Primary osteoarthritis, left hand; M19.041 Primary osteoarthritis, right hand; M06.9 Rheumatoid arthritis, unspecified; H40.9 Unspecified glaucoma; F41.9 Anxiety disorder, unspecified; R40.2412 Glasgow coma scale score 13-15, at arrival to emergency department; R74.8 Abnormal levels of other serum enzymes; H91.90 Unspecified hearing loss, unspecified ear; Z90.721 Acquired absence of ovaries, unilateral; Z82.49 Family history of ischemic heart disease and other diseases of the circulatory system; Z80.0 Family history of malignant neoplasm of digestive organs; Z83.3 Family history of diabetes mellitus; Z80.42 Family history of malignant neoplasm of prostate; Z87.01 Personal history of pneumonia (recurrent); Z97.4 Presence of external hearing-aid; Z92.3 Personal history of irradiation; Z87.891 Personal history of nicotine dependence; Z85.3 Personal history of malignant neoplasm of breast; Z86.19 Personal history of other infectious and parasitic diseases; Z23 Encounter for immunization; K52.9 Noninfective gastroenteritis and colitis, unspecified; Z79.4 Long term (current) use of insulin
CPT/HCPCS: 36415; 71010; 78452; 80048; 80053; 80061; 81003; 82550; 82553; 82803; 82947; 83605; 83690; 83735; 83880; 84100; 84484; 85025; 85610; 85730; 86140; 87641; 90686; 93005; 93017; 93306; 94760; 99213; A9270-GY; A9502; G0463; J0280; J1644; J2405; J2785; J3475